=== PATIENT | female | born 1955 | race Caucasian/White ===

== ENCOUNTER 2023-06-14 12:41 | Outpatient (CLI) | payer MEDICARE, BC, SELFPAY ==
--- NOTE | 2023-06-14 13:41 | W.ANESCHARGE ---
Anesthesia Charges Start Date/Time Anesthesia Start Date: 06/14/23 Anesthesia Start Time: 13:14 Stop Date/Time Anesthesia Stop Date: 06/14/23 Anesthesia Stop Time: 13:35
--- NOTE | 2023-06-14 13:50 | W.ANESCHARGE ---
Anesthesia Charges Start Date/Time Anesthesia Start Date: 06/14/23 Anesthesia Start Time: 13:14 Stop Date/Time Anesthesia Stop Date: 06/14/23 Anesthesia Stop Time: 13:35
== END 2023-06-14 12:42 | disposition home or self-care (01) ==
LOC: OP CLINIC 12:42
PROVIDERS: PCP Family Medicine; Visit Provider Internal Medicine Gastroenterology
DX: Z12.11 Encounter for screening for malignant neoplasm of colon (principal); K57.30 Diverticulosis of large intestine without perforation or abscess without bleeding
CPT/HCPCS: 00811; 00812; 45378; J2704

== ENCOUNTER 2023-07-29 10:49 | Outpatient (CLI) | payer MEDICARE, BC, SELFPAY | END 2023-07-29 10:50 | disposition home or self-care (01) | LOC: NFLDREF 08-06 12:03 | PROVIDERS: PCP Family Medicine; Referring Provider Family Medicine; Visit Provider Physician Assistant | DX: N39.0 Urinary tract infection, site not specified (principal); B37.9 Candidiasis, unspecified | CPT/HCPCS: 87086 ==

== ENCOUNTER 2025-01-04 09:00 | Outpatient (RCR) | payer MEDICARE, BC, SELFPAY | END 2025-05-04 23:59 | disposition home or self-care (01) | PROVIDERS: PCP Family Medicine; Visit Provider Family Medicine | DX: I89.0 Lymphedema, not elsewhere classified (principal); Z51.89 Encounter for other specified aftercare | CPT/HCPCS: 97140; 97165; 97530; 97535 ==